=== PATIENT | female | born 1950 | race Caucasian/White ===

== ENCOUNTER 2016-10-03 08:47 | Day surgery (SDC) | payer MEDICARE, BC ==
[2016-10-01 09:34] VITALS: BMI 26.6
--- NOTE | 2016-10-02 11:50 | HP ---
DATE OF ADMISSION: CHIEF COMPLAINT: Right knee pain. HISTORY OF PRESENT ILLNESS: The patient is a 66-year-old retired female who presents with progressive right knee pain for the past several months. She notes swelling, stiffness, and pain with activity. She has intermittent catching and giving way. She has tried medications and multiple injections with only partial temporary relief. PAST MEDICAL HISTORY: Significant for depression, hypertension, hypothyroidism, and arthritis. PAST SURGICAL HISTORY: Significant for breast biopsy, hernia repair, hysterectomy and nephrectomy. CURRENT MEDICATIONS: 1. Aspirin. 2. Effexor. 3. Levoxyl. 4. Lipitor. 5. Metoprolol. 6. Premarin. 7. Valacyclovir. 8. Ranitidine. She has allergies to PROZAC and WELLBUTRIN. FAMILY HISTORY: Significant for heart disease and cancer. SOCIAL HISTORY: Negative for current tobacco or alcohol use. A 16-point review of systems otherwise reviewed and is noncontributory. On examination, the patient is approximately 5 foot 9, 182 pounds of mesomorphic habitus. HEENT exam is nonfocal. Neck is supple. She is nontender about the lumbar spine. Passive motion of the right hip is painless. Active motion right knee -6 to 130 degrees of flexion. She is tender about the medial joint line. She has a trace effusion. Collaterals are stable, Serge is negative, Christiano's elicits medial pain. Her distal neurovascular exam appears be intact in the right lower extremity. Previous x-rays of the right knee obtained in the office show moderate medial and patellofemoral compartment narrowing. IMPRESSION: 1. Right knee internal derangement with symptomatic medial meniscal tear. 2. Right knee moderate medial and patellofemoral compartment osteoarthrosis. RECOMMENDATIONS: I talked to the patient at length regarding her treatment options. At this point, she is quite symptomatic and having pain and mechanical symptoms despite conservative measures. After a thorough discussion, she opts to proceed with surgery. We will plan to proceed with arthroscopic evaluation with possible partial medial meniscectomy, in addition to possible patellar chondroplasty. Risks and benefits are discussed at length in layman terms. We will likely perform that as an outpatient procedure.
[~2016-10-03 08:47] MED LIST: DEXAMETHASONE SOD PHOSPHATE 10 MG/ML 1 ML VIAL IV ONE; LACTATED RINGERS 1,000 ML IV SCH; ONDANSETRON 4 MG/2 ML VIAL IVP ONE; ceFAZolin 2 GM in SODIUM CHLORIDE 0.9% 100 ML IVPB ONE
[2016-10-03] MEDS ORDERED: LIDOCAINE 1% 20 ML VIAL (10MG/ML) FOR IV START INTRADERMA ONE (09:09)
[2016-10-03] MEDS ORDERED: PROPOFOL 10 MG/ML 20 ML VIAL IV ONE (10:17)
[2016-10-03] MEDS ORDERED: fentaNYL (PF) 50 MCG/ML 2 ML AMP ONE (10:17)
[2016-10-03] MEDS ORDERED: LIDOCAINE 1% INJ 10MG/ML (20 ML MDV) ONE (10:17)
[2016-10-03] MEDS ORDERED: MIDAZOLAM 2 MG/2 ML VIAL ONE (10:17)
[2016-10-03] MEDS ORDERED: EPINEPHrine (PF) 1 ML in SODIUM CHLORIDE 0.9% IRRIGATIO 3,000 ML IRRIGATION ONE ×2 (10:36→10:37)
--- NOTE | 2016-10-03 10:57 | P.OP ---
Date of Procedure: 10/03/16 Preoperative Diagnosis: Right knee internal derangement Postoperative Diagnosis: Right knee posterior medial meniscal tear/grade 3 chondral injury posterior lateral medial femoral condyle/middle one third lateral meniscal tear Procedure(s) Performed: Right knee arthroscopic partial medial meniscectomy/partial lateral meniscectomy /medial femoral chondrectomy Implants: Anesthesia: JOSÉ MIGUELA Surgeon: Bimal Cooper Estimated Blood Loss (ml): 10 Pathology: none sent Condition: stable Disposition: PACU Indications for Procedure: The patient's a 66-year-old female who presents with several month history of progressive right knee pain and mechanical symptoms despite conservative treatment. A discussion of the risks and benefits of continued conservative measures versus operative intervention was made with patient. She opted to proceed with surgery. Operative risks to include infection, neurovascular injury, development of blood clots, possible incomplete resolution of symptoms, possible worsening symptoms and need for subsequent procedures was discussed. Informed consent was obtained. Operative Findings: As below Description of Procedure: The patient was brought to the operating room, and after induction of general anesthesia examined the right knee. Collaterals were stable, Serge was negative, and posterior drawer was negative. The right lower extremity was prepped and draped in normal fashion. A superior lateral portal was made through a 3 mm skin incision superior and lateral to the patella. This was used for outflow. A lateral portal was made through a 5 mm vertical skin incision lateral to the patella tendon above the joint line. Diagnostic arthroscopy was performed. A medial portal was made through a similar incision medial to the patellar tendon above the joint line. On inspection of the medial compartment, she is noted of complex tear involving the posterior horn of the medial meniscus in the white-white junction. This was not amenable to repair. This was debrided back to stable base with straight baskets and a motorized shaver. A corresponding grade 3 chondral injury was noted involving the posterior lateral portion medial femoral condyle. There was a loose chondral flap debrided back to stable base with motorized shaver. On inspection of the notch, the anterior cruciate ligament appeared to be intact. On inspection of the lateral compartment, a degenerative tear involving the middle one third of the lateral meniscus in the white-white junction was noted. This debrided back to stable base with straight baskets and a motorized shaver. The remaining lateral meniscus was stable and intact. On inspection patellofemoral articulation, there was some chondral fibrillation, however no loose chondral fragments. The gutters were clear debris. The knee was then thoroughly irrigated. The portals were closed with Steri-Strips. A sterile dressing was applied in addition to a compression stocking. The patient was awoken from general anesthesia and transferred to the recovery room in good condition. Blood loss was estimated at 10 mL. No, the case were incurred.
[2016-10-03 11:04] VITALS: TEMP 97.4
[2016-10-03] MEDS: HYDROmorphone 1 MG/ML 1 ML SYRINGE IVP PRN ×2 (11:10→11:25)
[2016-10-03 12:07] VITALS: RESP 16
[2016-10-03] MEDS ORDERED: HYDROcodone/APAP 5-325MG 1 EACH TAB PO ONE (12:20)
[2016-10-03 12:45] VITALS: BP 124/61; PULSE 57
== END 2016-10-03 13:08 | disposition home or self-care (01) ==
LOC: OR 08:47
PROVIDERS: ATTEND Orthopaedic Surgery
DX: S83.281A Other tear of lateral meniscus, current injury, right knee, initial encounter (principal); S83.241A Other tear of medial meniscus, current injury, right knee, initial encounter; S83.31XA Tear of articular cartilage of right knee, current, initial encounter; M17.11 Unilateral primary osteoarthritis, right knee; Z87.891 Personal history of nicotine dependence; E07.9 Disorder of thyroid, unspecified; G47.00 Insomnia, unspecified; I10 Essential (primary) hypertension; E78.5 Hyperlipidemia, unspecified; K21.9 Gastro-esophageal reflux disease without esophagitis; F41.9 Anxiety disorder, unspecified; Z79.82 Long term (current) use of aspirin; Z79.899 Other long term (current) drug therapy; Z88.8 Allergy status to other drugs, medicaments and biological substances; X58.XXXA Exposure to other specified factors, initial encounter; Z90.5 Acquired absence of kidney; Z79.51 Long term (current) use of inhaled steroids
CPT/HCPCS: 29880; J2250; J0690; J2405; J0171; J2001; J3010; J1170; J2704

== ENCOUNTER → 2017-06-04 | Outpatient (CLI) | payer MEDICARE, BC ==
--- NOTE | 2017-06-04 14:05 | CT ---
EXAMINATION TYPE: CT thor lumbar spine wo con DATE OF EXAM: 06/04/2017 COMPARISON: 12/01/2013 HISTORY: 66-year-old female low back pain with right foot and leg pain. TECHNIQUE: Contiguous axial scanning of the thoracic and lumbar without IV contrast. Coronal and sagi ttal reconstructions performed. CT DLP: 835 mGycm Automated exposure control for dose reduction was used. FINDINGS: There is thoracolumbar sacral fusion extending from T10 down through S1 levels. Underlying S-shaped s coliosis of the thoracolumbar spine. Anterior fusion hardware is present at L4-L5 and L5-S1. Prominent lucency is present around the L5-S1 hardware and it appears to be embedded in the anterior disc interspace. There is also periventricula r lucency involving the S1 transpedicular screws which come from posteriorly. The right L3 transpedicular screw violates the inferior pedicular cortex extending into the superior aspect of the L3-L4 neuroforamen, sagittal image 35. The left L1 transpedicular screw similarly violates the inferior pedicular cortex and encroaches onto the superior left L1-L2 neuroforamen (sagittal image 27). It also violates the medial pedicular misty ex extending into the lateral recess (axial image 112). There appears to be some varying degrees of lateral osseous and interbody fusion throughout these fus ed levels and laminectomy opposite L2. Alignment is maintained. On the left, there are moderate neural foraminal stenoses at L4-L5 and L5-S1. On the right, there is mild to moderate neuroforaminal stenosis and T10-T11 and T11-T12 and moderate to severe at L5-S1. A 5 mm right mid lung pulmonary nodule, axial image 58. Mild biapical pleural-parenchymal scarring. Small hiatal hernia. Surgical clips along the left iliac chain. Prevertebral paravertebral soft tissu e abnormality seen. IMPRESSION: 1. S-SHAPED SCOLIOSIS WITH INTERVAL T10-S1 POSTERIOR FUSION. ANTERIOR LUMBAR FUSION AT L4-L5 AND L5-S 1. MANY LEVELS SHOW SATISFACTORY INTERBODY AND LATERAL OSSEOUS FUSION 2. PERIPROSTHETIC LUCENCY INVOLVING THE ANTERIOR L5-S1 HARDWARE WELL THE S1 TRANSPEDICULAR SCRE WS. CONTINUED MOTION AND LOOSENING AT THIS SITE DIFFICULT TO EXCLUDE AT THIS TIME. 3. RIGHT L3 AND LEFT L1 SCREW POSITIONING MENTIONED ABOVE OF QUESTIONABLE CLINICAL SIGNIFICANCE. 4. VARIABLE NEUROFORAMINAL NARROWING OUTLINED ABOVE. MODERATE TO SEVERE ON THE RIGHT AT L5-S1. 5. 5 MM RIGHT MID LUNG PULMONARY NODULE. A ONE-YEAR FOLLOW-UP CT CHEST CAN REASSESS. SMALL HIATAL HER KARINA.
== END | disposition home or self-care (01) ==
LOC: RADCTMAIN 13:06
PROVIDERS: ATTEND Orthopaedic Surgery
DX: M99.73 Connective tissue and disc stenosis of intervertebral foramina of lumbar region (principal); M41.84 Other forms of scoliosis, thoracic region; M48.062 Spinal stenosis, lumbar region with neurogenic claudication; Z98.1 Arthrodesis status; Z98.890 Other specified postprocedural states
CPT/HCPCS: 72128; 72131

== ENCOUNTER → 2017-06-12 | Outpatient (CLI) | payer MEDICARE, BC ==
--- NOTE | 2017-06-12 09:35 | MR ---
EXAMINATION TYPE: MR lumbar spine wo con DATE OF EXAM: 06/12/2017 COMPARISON: CT scan 06/04/2017 HISTORY: Low back pain / Spinal stenosis TECHNIQUE: T1 and T2 axial and sagittal images of the lumbar spine are submitted. There is extreme metal artifact from the patient's postsurgical changes. Results in distortion of the images in a nond iagnostic exam. FINDINGS: There is extreme metal artifact from the patient's postsurgical changes. Results in distort ion of the images in a nondiagnostic exam. Spinal cord assessment and spinal canal evaluation nondiag nostic due to extreme artifact Grossly there appears to be degenerative disc disease surgical change at all levels and a levo scolio tic curvature of the spine. Assessment for disc herniation, foraminal encroachment and canal stenosis or infection nondiagnostic. Suspect moderate foraminal encroachment at L4-5 and L5 on the left and m oderate to severe on the right at L5. As previously noted the left L1 transpedicular screw extends inferior to the particular cortex encroa ches upon the L1-L2 left neural foramina. The right L3 transpedicular screw also extends inferior to the pedicular cortex extending into the superior aspect of the L3-L4 neural foramina as previously re ported by CT. Due to artifact these areas are not well visualized. IMPRESSION: 1. Nondiagnostic exam due to extreme metal artifact extending throughout the lumbar spine as noted by the CT report motion or loosening at the level of L5-S1 cannot be excluded given the limitation of t he exam. See above.
== END | disposition home or self-care (01) ==
LOC: RADMRIMAIN 08:33
PROVIDERS: ATTEND Orthopaedic Surgery
DX: M54.5 Low back pain (principal)
CPT/HCPCS: 72148

== ENCOUNTER 2017-09-29 06:11 | Day surgery (SDC) | payer MEDICARE, BC ==
[2017-09-29] MEDS ORDERED: LIDOCAINE 1% 20 ML VIAL (10MG/ML) FOR IV START INTRADERMA PRN (06:12)
[2017-09-29] MEDS ORDERED: MIDAZOLAM 2 MG/2 ML VIAL IV PRN (06:12)
[2017-09-29] MEDS ORDERED: LACTATED RINGERS 1,000 ML IV SCH (06:15)
[2017-09-29] MEDS: FLURBIPROFEN 0.03% OPHTH DROPS 2.5 ML BTL OP ONE ×4 (07:08→07:28)
[2017-09-29] MEDS: CYCLOPENTOLATE 1% OPHTH SOLN 2 ML BTL OP ONE ×3 (07:11→07:29)
[2017-09-29] MEDS: PHENYLEPHRINE 10% OPHTH DROPS 5 ML BTL OP ONE ×2 (07:14→07:33)
[2017-09-29 07:17] VITALS: TEMP 97
[2017-09-29] MEDS ORDERED: BALANCED SALT IRRIG SOLN COMB2 15 ML IRRIG.SOLN INTRAOCULA ONE ×2 (07:35→07:55)
[2017-09-29] MEDS ORDERED: HYALURONATE SODIUM INTRAOCULAR 1 EACH SYRINGE (10MG/ML) INTRAOCULA ONE ×2 (07:36→07:55)
[2017-09-29] MEDS: BUPIVACAINE (PF) 0.75% 5 ML, HYALURONIDASE, HUMAN RECOMB 150 UNIT, LIDOCAINE 2% (PF) 10... MISCELLANE ONE ×6 (07:36→07:55)
[2017-09-29] MEDS: GENTAMICIN/PREDNISOL AC OPHTH OINT 3.5GM OPHTHALMIC ONE ×2 (07:37→07:55)
[2017-09-29] MEDS: TIMOLOL 0.5% OPHTH DROPS 5 ML BTL OP ONE ×2 (07:37→07:55)
[2017-09-29] MEDS ORDERED: EPINEPHrine (PF) 0.5 ML in BALANCED SALT IRRIG SOLN COMB2 500 ML IRRIGATION ONE ×4 (07:38)
[2017-09-29] MEDS ORDERED: PROPOFOL 10 MG/ML 20 ML VIAL IV ONE (07:44)
[2017-09-29] MEDS ORDERED: LACTATED RINGERS 1,000 ML IV ONE (07:49)
[2017-09-29 08:17] VITALS: RESP 16
[2017-09-29] MEDS ORDERED: ACETAMINOPHEN TAB 325 MG TAB PO ONE (08:29)
[2017-09-29 08:38] VITALS: BP 129/84; PULSE 61
--- NOTE | 2017-09-29 08:49 | P.OP ---
Date of Procedure: 09/29/17 Procedure(s) Performed: PREOPERATIVE DIAGNOSIS: Cataract, right eye. POSTOPERATIVE DIAGNOSIS: Cataract, right eye. OPERATION: Phacoemulsification cataract, right eye. DESCRIPTION OF PROCEDURE: The patient was taken to the preoperative holding area. Intravenous Propofol was given so as to bring about adequate sedation. The following mixture was given for local anesthesia: 5 mL of 2% lidocaine, 5 mL of 0.75% Marcaine, and 1 mL of Wydase. Approximately 4 mL was injected in the retrobulbar space of the surgical eye. Additional 1 mL was then directed to the temporal area of the surgical eye. This was performed to allow adequate neurological block of the facial muscles. The patient was revived and then taken into the operative room. The patient was prepped and draped in the usual sterile manner for the operative eye. A lid speculum was put into position. The conjunctiva was resected back from the limbus in the 12 o'clock position. Bleeding was controlled with electrocautery. A #69 blade was then used and a half-thickness scleral incision approximately 1-mm posterior to the limbus was made on bare sclera. This was shelved in the clear cornea using a crescent knife. Next a 15-degree blade was used to make a stab incision at the 3 o' clock position at the corneolimbal interface. Keratome blade was then used and the superior wound was extended into the anterior chamber. Viscoelastic was injected into the anterior chamber and to maintain its form. Next, a cystotome was used and a continuous anterior capsulotomy was made without difficulty. Hydrodissection using a blunt cannula and BSS was performed. Phaco probe was then employed and a groove extending from 12 to 6 o'clock in the lens was created. A Cholo wand was used through the stab incision so as to perform a divide and conquer technique. Next an irrigation aspiration probe was utilized and any residual cortex was removed from the eye. Again, viscoelastic was injected into the anterior chamber. An David posterior chamber lens implant was placed in the cartridge and injected into the anterior chamber without difficulty. The SinYottaMarkey hook was utilized to spin the lens into position and this was again performed without any difficulty. The irrigation and aspiration probe was again employed and any residual viscoelastic was removed from the eye. Then BSS was injected into the limbal stab incision and the anterior chamber re-inflated. The conjunctiva was reapproximated using electrocautery. One drop of 0.25% Timoptic was placed over the corneal along with TobraDex ophthalmic ointment. Two sterile patches and a Can eye shield were taped into position. The patient was transported to the recovery room in stable condition. Pathology: none sent Condition: stable Disposition: same day
== END 2017-09-29 08:54 | disposition home or self-care (01) ==
LOC: OR 06:11
PROVIDERS: ATTEND Ophthalmology
DX: H25.13 Age-related nuclear cataract, bilateral (principal); I73.9 Peripheral vascular disease, unspecified; E78.5 Hyperlipidemia, unspecified; F41.9 Anxiety disorder, unspecified; K21.9 Gastro-esophageal reflux disease without esophagitis; F32.9 Major depressive disorder, single episode, unspecified; I10 Essential (primary) hypertension; E06.3 Autoimmune thyroiditis; Z88.6 Allergy status to analgesic agent; Z88.8 Allergy status to other drugs, medicaments and biological substances; Z91.041 Radiographic dye allergy status; Z79.82 Long term (current) use of aspirin; Z79.899 Other long term (current) drug therapy
CPT/HCPCS: 66984; V2632; J3470; J2001; J0171; J2704

== ENCOUNTER → 2018-04-06 | Outpatient (CLI) | payer MEDICARE ==
--- NOTE | 2018-04-08 13:36 | MM ---
Reason for exam: screening (asymptomatic). Last mammogram was performed 5 years and 1 month ago. History: Patient is postmenopausal. Benign excisional biopsy of the right breast, 1991. Took progesterone for 25 years. Physical Findings: A clinical breast exam by your physician is recommended on an annual basis and results should be correlated with mammographic findings. MG Screening Mammo w CAD Bilateral CC and MLO view(s) were taken. Prior study comparison: March 16, 2013, mammogram, performed at [facility], [place]. The breast tissue is heterogeneously dense. This may lower the sensitivity of mammography. Global asymmetry anterior inferior left breast stable. No significant changes when compared with prior studies. ASSESSMENT: Negative, BI-RAD 1 RECOMMENDATION: Routine screening mammogram of both breasts in 1 year.
== END | disposition home or self-care (01) ==
LOC: RADMAMWWP 15:04
PROVIDERS: ATTEND Family Medicine
DX: Z12.31 Encounter for screening mammogram for malignant neoplasm of breast (principal)
CPT/HCPCS: 77067